=== PATIENT | female | born 1950 | race Caucasian/White ===

== ENCOUNTER 2024-02-10 04:09 | Day surgery (SDC) | payer OTHER ==
[2024-02-03 13:49] VITALS: BMI 26.2
[2024-02-10] MEDS ORDERED: LIDOCAINE HCL/PF 2% SDV 5ML VIAL ONE (08:50)
[2024-02-10] MEDS ORDERED: PROPOFOL 40 ML ONE (08:50)
[2024-02-10] MEDS ORDERED: SUCCINYLCHOLINE CHLORIDE 200 MG/10 ML SYRINGE ONE (08:50)
[2024-02-10] MEDS ORDERED: MIDAZOLAM HCL 2 MG/2 ML SINGLE DOSE VIAL ONE (08:50)
[2024-02-10] MEDS ORDERED: ROCURONIUM BROMIDE 50 MG/5 ML SYRINGE ONE (08:50)
[2024-02-10] MEDS ORDERED: BUPIVACAINE HCL/PF 0.5% (5MG/ML) 10 ML VIAL ONE (09:29)
[2024-02-10] MEDS ORDERED: LIDOCAINE 1%/EPI 1:100000 (20 ML MULTI DOSE VIAL) ONE (09:30)
[2024-02-10] MEDS: ceFAZolin SODIUM 1 GM VIAL IVPB ONE (10:00)
[2024-02-10] MEDS: BUPIVACAINE HCL/PF 0.5% (5MG/ML) 10 ML VIAL IJ ONE (10:17)
[2024-02-10] MEDS ORDERED: MICROFIBRILLAR COLLAGEN (AVITENE) 1 EACH POWD.PACK TP ONE (11:00)
[2024-02-10] MEDS: MICROFIBRILLAR COLLAGEN 1 GM EACH TP ONE (11:17)
[2024-02-10] MEDS ORDERED: oxyCODONE HCL 5 MG TABLET PO PRN (11:58)
[2024-02-10] MEDS ORDERED: LACTATED RINGERS SOLUTION 1,000 ML IV SCH ×2 (12:00→12:45)
[2024-02-10 13:59] VITALS: RESP 16
[2024-02-10 15:11] VITALS: BP 145/85; PULSE 77; TEMP 97.7
== END 2024-02-10 15:47 | disposition home or self-care (01) ==
LOC: JASU-SURG 04:09
PROVIDERS: ATTEND Surgery
PROC: 00BM0ZZ Excision of Facial Nerve, Open Approach (ICD-10-PCS; 2024-02-10)
PROC: 0CT90ZZ Resection of Left Parotid Gland, Open Approach (ICD-10-PCS; principal; 2024-02-10 09:00)
DX: D11.0 Benign neoplasm of parotid gland (principal)
CPT/HCPCS: 86850; 86900; 86901; 88307-TC; 94760

== ENCOUNTER 2024-02-20 07:58 | Emergency (ER) | payer OTHER ==
[2024-02-20 08:09] VITALS: RESP 16; BMI 32.2
[2024-02-20 10:01] LABS: BASO % 0.7 % (0-2.0); EOS % 1.8 % (0-4.5); HEMATOCRIT 40.1 % (32.4-45.2); HEMOGLOBIN 13.9 GM/dL (10.7-15.3); MCHC 34.6 g/dl (32.0-36.0); MEAN CELL VOLUME 86.7 fl (80-96); MEAN PLT VOLUME 7.1 fl (7.5-11.1); MONO % 7.4 % (3.8-10.2); NEUT % 72.1 % (42.8-82.8); PLATELET COUNT 229 10^3/uL (134-434); RBC 4.63 M/mm3 (3.60-5.2); RDW 14.3 % (11.6-15.6); WHITE BLOOD COUNT 9.2 K/mm3 (4.0-10.0)
[2024-02-20] MEDS ORDERED: ACETAMINOPHEN INJECTION 100 ML IVPB ONE (10:10)
[2024-02-20 10:14] LABS: POTASSIUM 4.2 mmol/L (3.5-5.1)
[2024-02-20 10:17] LABS: ALBUMIN 3.3 g/dl (3.4-5.0)
[2024-02-20 10:20] LABS: CREATININE 0.6 mg/dL (0.55-1.3)
[2024-02-20 10:21] LABS: ACTIVATED PTT 35.5 SECONDS (25.2-36.5); BILIRUBIN,TOTAL 0.3 mg/dL (0.2-1); INR 0.98 (0.83-1.09); PROTHROMBIN TIME (PATIENT) 11.3 SEC (9.7-13.0); TOT PROT 6.6 g/dl (6.4-8.2)
[2024-02-20] MEDS: ACETAMINOPHEN 1000 MG/100 ML BAG IVPB ONE (10:25)
[2024-02-20 11:54] VITALS: BP 163/86; PULSE 65; TEMP 98.3
[2024-02-20] MEDS ORDERED: ceFAZolin SODIUM 1 GM VIAL ONE (13:14)
[2024-02-20] MEDS ORDERED: morphine SULFATE 4 MG/ML VIAL ONE (13:14)
[2024-02-20] MEDS: morphine CARPU-JECT 4 MG/1 ML DISP.SYRIN IVPUSH ONE (13:34)
[2024-02-20] MEDS: CEFAZOLIN 500 MG in DEXTROSE 5%-WATER - 50 ML IVPB ONE (13:35)
[2024-02-20] MEDS: CEFAZOLIN 1 GM in DEXTROSE 5%-WATER - 50 ML IVPB ONE (13:35)
== END 2024-02-20 13:59 | disposition home or self-care (01) ==
LOC: JER 07:58
PROC: 3E03329 Introduction of Other Anti-infective into Peripheral Vein, Percutaneous Approach (ICD-10-PCS; principal; 2024-02-20)
PROC: 3E033NZ Introduction of Analgesics, Hypnotics, Sedatives into Peripheral Vein, Percutaneous Approach (ICD-10-PCS; 2024-02-20)
DX: T81.49XA Infection following a procedure, other surgical site, initial encounter (principal)
CPT/HCPCS: 36415; 70491-TC; 80053; 85025; 85610; 85730; 86850; 86900; 86901; 96365; 96375; 99285-25; J0131

== ENCOUNTER 2024-02-23 05:09 | Emergency (ER) | payer OTHER ==
[2024-02-23 05:18] VITALS: BP 144/90; PULSE 95; RESP 18; TEMP 98.4; BMI 26.6
[2024-02-23] MEDS ORDERED: LORATADINE 10 MG TABLET ONE (06:22)
[2024-02-23] MEDS: LORATADINE 10 MG TABLET PO ONE (06:27)
[2024-02-23] MEDS ORDERED: CLINDAMYCIN HCL 150 MG CAPSULE (FP) ONE (07:26)
[2024-02-23] MEDS ORDERED: IBUPROFEN 600 MG TABLET (FP) PO ONE (07:27)
[2024-02-23] MEDS: IBUPROFEN 600 MG TABLET (FP) PO ONE (07:39)
[2024-02-23] MEDS: CLINDAMYCIN HCL 150 MG CAPSULE (FP) PO ONE (07:39)
== END 2024-02-23 07:30 | disposition home or self-care (01) ==
LOC: JER 05:09
DX: R21 Rash and other nonspecific skin eruption (principal); T36.0X5A Adverse effect of penicillins, initial encounter; K11.8 Other diseases of salivary glands; G89.18 Other acute postprocedural pain; R50.9 Fever, unspecified
CPT/HCPCS: 99283-25